=== PATIENT | male | born 1975 | race Caucasian/White ===

== ENCOUNTER 2017-09-16 20:58 | Emergency (ER) | payer OTHER ==
[~2017-09-16] VITALS: Ht 180.3 cm; Wt 111.6 kg
[2017-09-16 21:54] LABS: HEMATOCRIT 42.1 % (38.0-50.0); MCH 31.7 PG (29.0-34.0); MCV 93.3 FL (86-99); MEAN PLAT.VOLUME 11.7 uM^3 (9.0-12.4); PLATELET COUNT 259 K/uL (156-360); RBC DIS.WIDTH-CV 12.6 % (11.8-14.6); RBC DIS.WIDTH-SD 43.2 % (39-53); RED BLOOD COUNT 4.51 M/uL (4.00-5.50); WHITE BLOOD COUNT 7.3 K/uL (4.1-10.2)
[2017-09-16 22:04] LABS: CHLORIDE 101 mEq/L (99-109); POTASSIUM 3.9 mEq/L (3.7-5.4); SODIUM 141 mEq/L (136-147)
[2017-09-16 22:06] LABS: GLUCOSE 99 mg/dL (70-99)
[2017-09-16 22:07] LABS: ANION GAP 11 MEQ/L (2-14)
[2017-09-16 22:08] LABS: TOTAL BILIRUBIN 0.5 mg/dL (0.0-1.0)
[2017-09-16 22:09] LABS: ALKALINE PHOSPHATASE 59 IU/L (3-129)
[2017-09-16 22:10] LABS: GFR ESTIMATE (CALCULATED) > 59 mL/min/
[2017-09-16 22:11] LABS: UREA NITROGEN (BUN) 19 mg/dL (9-23)
[2017-09-16 22:13] LABS: LIPASE 54 U/L (1.0-51.0)
[2017-09-16 22:24] LABS: ADD MIUA? YES; BILIRUBIN NEGATIVE; BLOOD SMALL; COLOR STRAW ((YELLOW)); GLUCOSE (STRIP) NEGATIVE; KETONES NEGATIVE; LEUKOCYTES NEGATIVE; NITRITE NEGATIVE; PROTEIN (STRIP) NEGATIVE; SPECIFIC GRAVITY 1.009 (1.000-1.030); UROBILINOGEN 0.2 MG/DL (0.2-1.0)
[2017-09-16 22:29] LABS: BACTERIA NONE SEEN /HPF; EPITHELIAL CELLS RARE /HPF; MUCUS TRACE /LPF; RED BLOOD CELLS 0-5 /HPF (0-5); UCUL ADDED? NO; WHITE BLOOD CELLS 0-5 /HPF (0-5)
[2017-09-17] MEDS ORDERED: ZOFRAN ODT4 MG PO (00:46)
[2017-09-17 00:59] VITALS: BP 144/89
== END 2017-09-17 01:19 | disposition home or self-care (01) ==
LOC: RME 20:58 → EME 20:58 → RME 09-17 01:19
DX: R10.9 Unspecified abdominal pain (principal); R11.2 Nausea with vomiting, unspecified; K21.9 Gastro-esophageal reflux disease without esophagitis; R91.8 Other nonspecific abnormal finding of lung field; J45.909 Unspecified asthma, uncomplicated; I10 Essential (primary) hypertension
CPT/HCPCS: 74177; 80053; 81003; 83690; 85027; 99281; 99284; J2405; J7030